=== PATIENT | female | born 1990 | race Caucasian/White ===

== ENCOUNTER 2022-10-08 22:41 | Emergency (ER) | payer MEDICAID ==
[~2022-10-08] VITALS: Ht 149.9 cm; Wt 50.0 kg
[~2022-10-08 22:41] MED LIST: PERM60CR19 TP
[2022-10-08 22:45] VITALS: BP 126/82
--- NOTE | 2022-10-08 23:34 | NUR ---
Pt resting in lobby with her father. No distress at this time.
== END 2022-10-09 07:53 | disposition left against medical advice (07) ==
LOC: ER 22:42
DX: R56.9 Unspecified convulsions (principal); Z53.21 Procedure and treatment not carried out due to patient leaving prior to being seen by health care provider

== ENCOUNTER 2023-02-18 04:59 | Emergency (ER) | payer MEDICAID ==
[~2023-02-18] VITALS: Ht 149.9 cm; Wt 52.3 kg
[2023-02-18] MEDS ORDERED: clindamycin 600mg/D5W 50ml 50 ML IV ONE (06:30)
[2023-02-18] MEDS ORDERED: CLIN150C8 PO (06:57)
[2023-02-18] MEDS ORDERED: AMOX-580 PO (07:54)
[2023-02-18] MEDS ORDERED: CHLO473M2 PO (07:57)
[2023-02-18 08:11] VITALS: BP 117/80
== END 2023-02-18 08:13 | disposition home or self-care (01) ==
LOC: ER 05:00
DX: K08.89 Other specified disorders of teeth and supporting structures (principal); F17.200 Nicotine dependence, unspecified, uncomplicated; F12.90 Cannabis use, unspecified, uncomplicated; Z72.89 Other problems related to lifestyle; Z79.899 Other long term (current) drug therapy
CPT/HCPCS: 96365; 99284; J3490